=== PATIENT | female | born 1955 | race Caucasian/White ===

== ENCOUNTER 2024-10-20 11:00 | Day surgery (SDC) | payer MEDICARE, BC, SELFPAY ==
[2024-10-19 12:01] VITALS: BMI 29.2
[2024-10-20] VITALS (9 sets, daily range): BP systolic 99–175; BP diastolic 68–99; PULSE 73–89; RESP 9–19; TEMP 36.7–36.8; O2SAT 93–100; BMI 30.2
[2024-10-20] MEDS: SODIUM CHLORIDE 0.9% 500 ML 500 ML 20 ML IV (12:47)
[2024-10-20] MEDS: LIDOCAINE JELLY 2% (Urojet) 10 ML TUBE TOP (12:47)
[2024-10-20] MEDS: fentaNYL CIT INJ 50 mCg/ML AMP 2ML (ASD USE ONLY) IVP (12:55)
[2024-10-20] MEDS: MIDAZOLAM INJ 1 MG/ML VIAL 2 ML (ASD USE ONLY) 2 MG IVP (12:55)
== END 2024-10-20 13:45 | disposition home or self-care (01) ==
PROVIDERS: PCP Family Medicine; Referring Provider Specialist; Visit Provider Specialist
PROC: 0DBE8ZX Excision of Large Intestine, Via Natural or Artificial Opening Endoscopic, Diagnostic (ICD-10-PCS; CPT 45380; principal; 2024-10-20 13:45)
DX: Z12.11 Encounter for screening for malignant neoplasm of colon (principal); K57.30 Diverticulosis of large intestine without perforation or abscess without bleeding; K64.9 Unspecified hemorrhoids
CPT/HCPCS: G0121; A4649; J1200; J2250; J3010; J7999

== ENCOUNTER → 2024-11-15 | Outpatient (CLI) | payer MEDICARE, BC, SELFPAY ==
--- NOTE | 2024-11-15 10:43 | XR_ITS ---
Examination: Lumbar spine, 5 views Technique: Lumbar spine AP, lateral, coned lateral lower lumbar spine, bilateral obliques 5 views Exam date and time: November 15, 2024, 1044 hours INDICATIONS: Lower back pain radiating down both legs on the right side beginning one month ago FINDINGS: Prominent osteopenia. Lower lumbar levoscoliosis 8 degrees Mild to moderate diffuse facet arthropathy No lumbar fracture Transitional L5 vertebral body Diffuse [id number] lumbar disc narrowing Mild lumbar spondylosis IMPRESSION: Diffuse [id number] lumbar disc narrowing with spinal stenosis
== END | disposition home or self-care (01) ==
LOC: CDIM 10:28
PROVIDERS: PCP Family Medicine; Referring Provider Chiropractor; Visit Provider Chiropractor
DX: M48.061 Spinal stenosis, lumbar region without neurogenic claudication (principal)
CPT/HCPCS: 72110